=== PATIENT | male | born 1940 | race Caucasian/White ===

== ENCOUNTER 2017-03-03 18:35 | Emergency (ER) | payer MEDICARE, OTHER ==
--- NOTE | ~2017-03-03 | CR72 ---
[facility]. [facility] A Service of [facility] & [facility] RADIOLOGY TEXT RESULTS PATIENT: MAYO ARAYA LOCATION: SED : 41 UNIT #: [id number] AGE: [address]: Suki Dobson MD SEX: M ORDER DR: [id number] [place] [id number] E MR#: [id number] Acc #: [id number] NAME: MAYO ARAYA : 1940 SEX: M STUDY DATE/TIME: 03/03/2017 19:07 UNIT: SED ROOM: STUDY DESCRIPTION: CR Chest Single View Portable Attending Physician: Suki Dobson M.D. Ordering Physician: Suki Dobson M.D. Primary Care Physician: Ramon Mckeon M.D. MEDICAL IMAGING REPORT This report is preliminary unless electronic signature is present. EXAM Portable chest HISTORY Chest pain and pressure today. FINDINGS ETT tip is 2.5 cm above the olayinka. Probable infiltrate or atelectasis in the retrocardiac left lower lobe, evaluation which is partly limited by patient rotation to the left and underpenetration. There are also mild diffuse bilateral interstitial infiltrates and these are new findings compared to chest x-ray 04/28/2015. The interstitial prominence could be due to edema or pneumonitis. Stable vqal-ma-fkbdmiig right lower thoracic curve. Dictated by... Igor Huerta M.D. THIS IS AN ELECTRONICALLY VERIFIED REPORT Igor Huerta M.D. at 03/04/2017 11:18 PM DFL/delia TD: 03/04/2017 02:41 JOB #: [id number] MEDICAL IMAGING REPORT Page 1 of 1
--- NOTE | ~2017-03-03 | EKG ---
PATIENT: MAYO ARAYA UNIT #: [id number] Ventricular Rate: 96 BPM Atrial Rate: 96 BPM P-R Interval: 156 ms QRS Duration: 100 ms Q-T Interval: 352 ms QTC Calculation(Bezet): 444 ms P [place]: 38 degrees Calculated R [place]: 33 degrees Calculated T [place]: 53 degrees Diagnosis Line: Normal sinus rhythm Diagnosis Line: ST elevation consider inferolateral injury or Diagnosis Line: acute infarct Diagnosis Line: * ACUTE UT Diagnosis Line: Abnormal ECG Diagnosis Line: When compared with ECG of 13-JUL-2016 06:58, Diagnosis Line: ST elevation now present in Inferior leads Diagnosis Line: ST now depressed in Anterior leads Diagnosis Line: ST elevation now present in Lateral leads Diagnosis Line: T wave inversion now evident in Anterior leads Diagnosis Line: Nonspecific T wave abnormality no longer evident Diagnosis Line: in Lateral leads Diagnosis Line: Confirmed by JORY ALBERT MD ([id number]) on 03/08/2017 Diagnosis Line: 7:59:43 PM INTERPRETING MD: ROOSEVELT TURPIN
[~2017-03-03 18:35] MED LIST: ANEXSIA 7.5/3251 TA1 PO; MIRALAX17 G2 PO; OMEPRAZOLE40 M1 PO; SENNA-S TABLET1 EAC1 PO; [UNRECOGNIZED DRUG - OTHER]
[2017-03-03 18:37] LABS: BASOPHIL# 0.1 X10e3 (0-0.3); BASOPHIL% 1.2 % (0-2.5); DIFF IND NO; EOSINOPHIL# 0.6 X10e3 (0-0.7); EOSINOPHIL% 6.1 % (0.0-7.0); HEMATOCRIT 42.1 % (38.0-50.0); HEMOGLOBIN 14.6 gm/dL (13.0-16.0); LYMPHOCYTE% 43.4 % (17.0-45.0); MEAN CELL VOLUME 94.4 FL (83-96); MEAN CORPUSCULAR HEMOGLOBIN 32.7 PG (28-34); MEAN CORPUSCULAR HGB CONC 34.7 g/dL (30-36); MEAN PLATELET VOLUME 8.9 FL (6.5-11.5); MONOCYTE# 0.7 X10e3 (0-1.0); MONOCYTE% 7.5 % (3.0-12.0); NEUTROPHIL# 3.9 X10e3 (1.5-7.1); NEUTROPHIL% 41.8 % (40-75); PLATELET COUNT 185 X10e3 (140-420); RED BLOOD COUNT 4.46 X10e (3.90-5.60); RED CELL DISTRIBUTION WIDTH 13.7 % (11.0-15.5); WHITE BLOOD COUNT 9.2 X10e3 (4.0-10.5)
[2017-03-03 18:43] LABS: INR 1.1; PROTHROMBIN TIME (PATIENT) 12.8 SECONDS (9.5-12.4)
[2017-03-03 18:50] LABS: PARTIAL THROMBOPLASTIN TIME 26.1 SECONDS (25.6-38.1)
[2017-03-03 18:52] LABS: BILIRUBIN, DIRECT 0.1 mg/dL (0.0-0.2); BILIRUBIN,INDIRECT 0.6 mg/dL (0.0-0.9); BILIRUBIN,TOTAL 0.7 mg/dL (0.2-2.0); GLOM FILT RATE Estimated 72.8 mL/min (>60); POTASSIUM 3.7 mmol/L (3.5-5.1); PROTEIN TOTAL SERUM 7.1 g/dL (6.0-8.3)
[2017-03-03 20:20] LABS: POC - CKMB <1.0 ng/mL (0.0-7.9)
[2017-03-03 20:21] LABS: POC - TROPONIN <0.05 ng/mL (<=0.05)
[2017-03-12] MEDS ORDERED: BENZONATATE200 M1 PO (01:39)
[2017-03-12] MEDS ORDERED: ST JOSEPH ASPIR81 MG PO (01:40)
[2017-03-12] MEDS ORDERED: METOPROLOL TAR25 MG PO (01:40)
[2017-03-12] MEDS ORDERED: AZITHROMYCIN250 MG PO (01:41)
[2017-03-12] MEDS ORDERED: BRILINTA90 MG PO (01:41)
[2017-03-12] MEDS ORDERED: ZESTRIL2.5 M1 PO (01:42)
[2017-03-12] MEDS ORDERED: LIPITOR80 MG PO (01:43)
[2017-03-12] MEDS ORDERED: NITROSTAT0.4 MG SL (01:44)
[2017-03-23] MEDS ORDERED: ISOSORBIDE MONO30 M1 PO (15:40)
[2017-03-23] MEDS ORDERED: LASIX20 MG PO (15:41)
[2017-03-23] MEDS ORDERED: BACLOFEN10 MG PO (15:41)
[2017-03-23] MEDS ORDERED: LOPRESSOR PO (15:42)
[2017-03-23] MEDS ORDERED: ATORVASTATIN CA80 MG PO (15:43)
== END 2017-03-03 19:25 ==
LOC: SED 18:35
PROVIDERS: Emergency Medicine
DX: I21.3 ST elevation (STEMI) myocardial infarction of unspecified site (principal); K21.9 Gastro-esophageal reflux disease without esophagitis; Z88.2 Allergy status to sulfonamides
CPT/HCPCS: 36415; 71010; 80048; 80076; 82553; 83874; 83880; 84484; 85025; 85610; 85730; 93005; 99285; J0282; J0330; J1644; J2250; J2270

== ENCOUNTER 2017-03-12 01:44 | Emergency (ER) | payer MEDICARE, OTHER ==
--- NOTE | ~2017-03-12 | EKG ---
PATIENT: MAYO ARAYA UNIT #: [id number] Ventricular Rate: 92 BPM Atrial Rate: 92 BPM P-R Interval: 146 ms QRS Duration: 84 ms Q-T Interval: 358 ms QTC Calculation(Bezet): 442 ms P [place]: 56 degrees Calculated R [place]: 23 degrees Calculated T [place]: 110 degrees Diagnosis Line: Sinus rhythm with occasional Premature ventricular Diagnosis Line: complexes Diagnosis Line: T wave abnormality, consider lateral ischemia Diagnosis Line: Abnormal ECG Diagnosis Line: When compared with ECG of 03-MAR-2017 18:14, Diagnosis Line: Premature ventricular complexes are now Present Diagnosis Line: ST no longer elevated in Inferior leads Diagnosis Line: ST less depressed in Anterior leads Diagnosis Line: T wave inversion no longer evident in Anterior Diagnosis Line: leads Diagnosis Line: T wave inversion now evident in Lateral leads Diagnosis Line: Confirmed by JORY ALBERT MD ([id number]) on 03/23/2017 Diagnosis Line: 11:47:34 AM INTERPRETING MD: ROOSEVELT TURPIN
--- NOTE | ~2017-03-12 | CR72 ---
[facility]. [facility] A Service of [facility] & [facility] RADIOLOGY TEXT RESULTS PATIENT: MAYO ARAYA LOCATION: SED : 41 UNIT #: [id number] AGE: [address]: Carlie Valdes MD SEX: M ORDER DR: [id number] [place] [id number] E MR#: [id number] Acc #: [id number] NAME: MAYO ARAYA : 1940 SEX: M STUDY DATE/TIME: 03/12/2017 2:17 UNIT: SED ROOM: STUDY DESCRIPTION: CR Chest Single View Portable Attending Physician: Carlie Valdes M.D. Ordering Physician: Carlie Valdes M.D. Primary Care Physician: Ramon Mckeon M.D. MEDICAL IMAGING REPORT This report is preliminary unless electronic signature is present. EXAM Portable chest INDICATIONS Chest pain and cough for 1 week. COMPARISON 03/06/2017. FINDINGS A portable view of the chest was obtained. Heart size and vascularity are normal. The lungs are clear. The bones are unremarkable. IMPRESSION No active disease. Dictated by... Adam Jaime M.D. THIS IS AN ELECTRONICALLY VERIFIED REPORT Adam Jaime M.D. at 03/12/2017 9:54 PM FEL/psc TD: 03/12/2017 18:28 JOB #: [id number] MEDICAL IMAGING REPORT Page 1 of 1
[~2017-03-12 01:44] MED LIST changes: +AZITHROMYCIN250 MG PO; +BENZONATATE200 M1 PO; +BRILINTA90 MG PO; +LIPITOR80 MG PO; +METOPROLOL TAR25 MG PO; +NITROSTAT0.4 MG SL; +ST JOSEPH ASPIR81 MG PO; +ZESTRIL2.5 M1 PO
[2017-03-12 02:05] LABS: BASOPHIL% 0.3 % (0-2.5); EOSINOPHIL# 0.1 X10e3 (0-0.7); EOSINOPHIL% 0.9 % (0.0-7.0); HEMATOCRIT 34.4 % (38.0-50.0); HEMOGLOBIN 11.8 gm/dL (13.0-16.0); LYMPHOCYTE% 7.3 % (17.0-45.0); MEAN CELL VOLUME 93.9 FL (83-96); MEAN CORPUSCULAR HEMOGLOBIN 32.1 PG (28-34); MEAN CORPUSCULAR HGB CONC 34.2 g/dL (30-36); MEAN PLATELET VOLUME 8.3 FL (6.5-11.5); MONOCYTE# 1.3 X10e3 (0-1.0); MONOCYTE% 9.2 % (3.0-12.0); NEUTROPHIL# 11.2 X10e3 (1.5-7.1); NEUTROPHIL% 82.3 % (40-75); PLATELET COUNT 226 X10e3 (140-420); RED BLOOD COUNT 3.66 X10e (3.90-5.60); RED CELL DISTRIBUTION WIDTH 13.7 % (11.0-15.5); WHITE BLOOD COUNT 13.6 X10e3 (4.0-10.5)
[2017-03-12 02:08] LABS: DIFF IND NO
[2017-03-12 02:10] LABS: INR 1.4; PROTHROMBIN TIME (PATIENT) 15.8 SECONDS (9.5-12.4)
[2017-03-12 02:12] LABS: POC - CKMB <1.0 ng/mL (0.0-7.9); POC - TROPONIN 0.28 ng/mL (<=0.05)
[2017-03-12 02:18] LABS: PARTIAL THROMBOPLASTIN TIME 22.7 SECONDS (25.6-38.1)
[2017-03-12 02:20] LABS: ALBUMIN SERUM 3.1 g/dL (3.5-5.0); BILIRUBIN, DIRECT 0.3 mg/dL (0.0-0.2); BILIRUBIN,INDIRECT 0.9 mg/dL (0.0-0.9); BILIRUBIN,TOTAL 1.2 mg/dL (0.2-2.0); CALCIUM SERUM 8.5 mg/dL (8.4-10.2); GLOM FILT RATE Estimated 72.8 mL/min (>60); MAGNESIUM 1.9 mg/dL (1.6-3.0); POTASSIUM 3.9 mmol/L (3.5-5.1); PROTEIN TOTAL SERUM 6.7 g/dL (6.0-8.3)
[2017-03-12 03:50] LABS: POC - CKMB <1.0 ng/mL (0.0-7.9)
[2017-03-23] MEDS ORDERED: ISOSORBIDE MONO30 M1 PO (15:40)
[2017-03-23] MEDS ORDERED: BACLOFEN10 MG PO (15:41)
[2017-03-23] MEDS ORDERED: LASIX20 MG PO (15:41)
[2017-03-23] MEDS ORDERED: LOPRESSOR PO (15:42)
[2017-03-23] MEDS ORDERED: ATORVASTATIN CA80 MG PO (15:43)
== END 2017-03-12 07:12 ==
LOC: SED 01:44
PROVIDERS: Student in an Organized Health Care Education/Training Program
DX: R07.9 Chest pain, unspecified (principal); R05 Cough; I25.10 Atherosclerotic heart disease of native coronary artery without angina pectoris; Z88.2 Allergy status to sulfonamides; Z79.899 Other long term (current) drug therapy
CPT/HCPCS: 36415; 71010; 80048; 80076; 82553; 83735; 83880; 84484; 85025; 85610; 85730; 93005; 99284; 99285

== ENCOUNTER 2017-03-23 16:13 | Observation (INO) | payer MEDICARE, OTHER ==
--- NOTE | ~2017-03-23 | CO ---
Unit #: [id number] #: [id number] Patient: MAYO ARAYA [id number] [facility] [address] [facility]. [place], [place] [address] [id number] I MR#: [id number] NAME: MAYO ARAYA ROOM: 340 Age: 77 Sex: M Admission Date: 03/23/2017 : 1940 Attending Physician: Nato Rdz M.D. Primary Care Physician: Ramon Mckeon M.D. CONSULTATION REPORT JOB NOTE: CC: [facility] CARDIOLOGY. REASON FOR CONSULTATION Anticoagulation management. HISTORY OF PRESENT ILLNESS This is a 77-year-old white male, who presented to [facility] on 03/03/[address] elevation myocardial infarction. He had a ventricular fibrillation arrest that was terminated after defibrillation x1. He was started on amiodarone drip and subsequently transferred to [facility]. He underwent emergent cardiac catheterization when he was found to have 100% stenosis to ramus intermedius branch, where a drug-eluting stent was inserted. He has right coronary artery lesions up to 80% to 90% stenosis that was not dilated and planned for dilation at a later date. He has been maintained on aspirin and Brilinta. The patient is admitted with a complaint of constipation and weakness. Since he was discharged home, he has been noted to have weakness. He has not been eating well. He drinks up to four Ensures a day. He is taking little p.o. intake. He has been constipated where he would strain at home leading him to manually disimpact himself, because of hard stools. He saw bright red blood after this occurrence. He has also been taking his blood pressure at home, which he says was as low as 77 mmHg. His son who works in cardiac rehab also took his blood pressure, which he says was low also. He went to his primary care physician and was advised to go to the emergency room for evaluation. In the emergency room, he was hypotensive with blood pressure of 77/62 mmHg that was treated with 1 L of normal saline. His blood pressure improved to 129/63 mmHg. He denies any symptoms of angina, palpitations, dizziness, syncope, or near syncope. He reports no leg edema. He has had no recurrent episodes of hematochezia. His hemoglobin was stable on admission. He has been seen by Dr. Mack, whom wanted to do a colonoscopy. We have been asked to see the patient for advancement of anticoagulation. PAST MEDICAL HISTORY 1. Ventricular fibrillation arrest in 02/2017. 2. ST-elevation myocardial infarction, status post cardiac catheterization 03/03/[address] Sood at [facility] that reveals the following results. a. Left main normal. b. Left anterior descending artery with distal stenosis of 70%. c. Circumflex artery with diffuse irregularity. d. Right coronary artery with tandem lesions up to 80% to 90%. e. Ramus intermedius branch with 100% proximal stenosis. Unit #: [id number] #: [id number] Patient: MAYO ARAYA f. Ejection fraction of 45%. 3. Status post angioplasty with drug-eluting stent to the ramus intermedius branch on 03/03/2017. 4. On 2D echocardiogram on 01/04/2017 showed an ejection fraction equal to 45% to 50% with mild mitral regurgitation and ljqh-bp-lphyeinw tricuspid regurgitation. 5. Ischemic cardiomyopathy. 6. Hypertension. 7. Hyperlipidemia. 8. Former smoker. PAST SURGICAL HISTORY 1. Exploratory laparotomy for lysis of adhesions. 2. Appendectomy. SOCIAL HISTORY The patient is . He quit smoking years ago. He denies illicit drug or alcohol use. FAMILY HISTORY Father with myocardial infarction at age 80. REVIEW OF SYSTEMS CONSTITUTIONAL: Negative for fever or chills. Reports weakness and fatigue. Has an undocumented weight loss. HEENT: No headache, hearing or vision changes, or difficulty with swallowing. Denies dizziness. CARDIOVASCULAR: Has no symptoms of angina. Unaware of palpitations. No paroxysmal nocturnal dyspnea or orthopnea. Denies syncope or near syncope. RESPIRATORY: Has occasional dyspnea on exertion. No cough or hemoptysis. GASTROINTESTINAL: No abdominal pain, but positive for constipation. Reports hematochezia. No melena. EXTREMITIES: Negative for lower extremity edema. PHYSICAL EXAMINATION VITAL SIGNS: Blood pressure 119/73, heart rate 77, temperature 98.3. GENERAL: This is a pleasant 77-year-old well-developed, elderly white male, who is in no acute distress. NEUROLOGIC: He is awake, alert, and oriented. There were no focal weaknesses. NECK: Trachea is midline. No thyromegaly or lymphadenopathy. No jugular venous distention. HEART: S1 and S2. Heart sounds are normal. No murmurs, rubs, or clicks. Regular rate and rhythm. ABDOMEN: Soft and nontender with bowel sounds are present. EXTREMITIES: Without leg edema. SKIN: Warm and dry. DIAGNOSTIC STUDIES LABORATORY RESULTS: Hemoglobin 11.8, hematocrit 39.8, and platelet count 252. White count 7.8. Sodium 134, potassium 4.5, BUN 20, creatinine 0.9, glucose 90. Troponin less than 0.05 to 0.05. IMAGING STUDIES: Chest x-ray shows no active disease. CARDIOVASCULAR STUDIES: EKG; normal sinus rhythm, rate of 83 beats per minute with a T-wave inversions in the inferolateral leads. Unit #: [id number] #: [id number] Patient: MAYO ARAYA IMPRESSION 1. Constipation. 2. Hematochezia. 3. Stable angina. 4. Status post percutaneous coronary intervention and stent to the ramus intermedius on 03/03/2017. 5. Depression. 6. Hypertension. 7. Hyperlipidemia. PLAN 1. Cardiology was consulted for anticoagulation management. Given recent drug-eluting stent after ST-elevation myocardial infarction on 03/03/2017, the patient will need to continue on dual antiplatelet therapy with aspirin and Brilinta. 2. We will proceed with percutaneous coronary intervention on the right coronary selectively on 04/05/2017. 3. The patient can stop Brilinta 6 months after the percutaneous coronary intervention in 03/2017 for colonoscopy. 4. The patient is stable for discharge home today. Thank you for allowing us to assist in this patient's care. Dictated by... Pavan HoughRMimi. for Natalia Ramirez/rey TD: 03/25/2017 02:56 JOB #: [id number] CONSULTATION REPORT Page 1 of 1 X Sherwin Ellis APRN CONSULTATION REPORT
--- NOTE | ~2017-03-23 | CO ---
Unit #: [id number] #: [id number] Patient: MAYO DEMARCO [id number] [facility] [address] [facility]. [place], [place] [address] [id number] MR#: [id number] NAME: MAYO DEMARCO ROOM: 340 Age: 77 Sex: M Admission Date: 03/23/2017 : 1940 Attending Physician: Nato Rdz M.D. Primary Care Physician: Ramon Mckeon M.D. CONSULTATION REPORT HISTORY OF PRESENT ILLNESS Mr. Demarco is a 77-year-old gentleman who presented with bright red blood per rectum and some hypotension. The patient is two weeks status post angioplasty and stenting after a myocardial infarction. He was placed on Brilinta and aspirin. The patient states he became constipated and was straining at stool and had to manually disimpact himself to pass the stool ball. After that he noticed some blood per rectum. He came for evaluation because of that. Since arrival in the emergency room here at [facility] he has been hemodynamically stable. He did have a hemoccult positive stool, but no more bright red blood per rectum. He denies any abdominal or pelvic pain or any rectal pain. The patient had a colonoscopy in 05/2015 and it showed some sigmoid diverticula. The patient also had a previous exploratory laparotomy for small bowel obstruction and was noted also to have some jejunal diverticulosis. Again, since admission the patient denies any further blood per rectum. He is passing flatus and denies any abdominal or rectal pain. He has had no fever or chills. PAST MEDICAL HISTORY 1. Myocardial infarction, status post stenting two weeks ago. 2. Hypertension. 3. Hyperlipidemia. 4. Reflux. 5. Recent cardiac catheterization angioplasty. 6. Exploratory laparotomy with lysis of adhesions. 7. Appendectomy. 8. EGD and colonoscopy. SOCIAL HISTORY The patient lives at home. Retired. Denies the use of alcohol or tobacco. FAMILY HISTORY Lung cancer. ALLERGIES Sulfa. HOME MEDICATIONS 1. Aspirin. 2. Brilinta. 3. Zestril. 4. Nitroglycerin p.r.n. 5. Isosorbide. Unit #: [id number] #: [id number] Patient: MAYO DEMARCO 6. Lasix. 7. Baclofen. 8. Lopressor. 9. Atorvastatin. REVIEW OF SYSTEMS As above. No fever, chills, night sweats. No nausea or vomiting. No hematemesis or melena. No further bright red blood since admission. He is passing flatus. PHYSICAL EXAMINATION GENERAL: He is resting comfortably. Awake, alert and oriented. VITALS: Temperature 98.8, pulse 73, respiratory rate 18, blood pressure 99/52. HEENT: Unremarkable. LUNGS: Clear. HEART: Regular rhythm. ABDOMEN: Soft and nontender. RECTAL: No active hemorrhoidal disease and no fissure. EXTREMITIES: No edema. NEUROLOGIC: Grossly intact. SKIN: No skin rashes or lesions. DIAGNOSTIC STUDIES LABORATORY: Chemistries are unremarkable. In particular his troponin is normal at 0.04. BNP is slightly elevated at 270. Coags are pending. White blood cell count 11,400 with normal differential. Hemoglobin 11.3, platelets 314,000. Urinalysis was negative for blood. ASSESSMENT The patient is a 77-year-old gentleman on 2 antiplatelet agents after an angioplasty. He became constipated and with manual disimpaction he noted some bright red blood per rectum. He denies any abdominal or rectal pain. He has had no further blood per rectum. He has been hemodynamically stable and has not passed any further blood since admission. However, the patient does have a history of sigmoid diverticulosis and jejunal diverticulosis. He certainly could be at risk for lower GI bleeding, but I believe this most likely is trauma secondary to the constipation and disimpaction while on two antiplatelet agents. Currently he is asymptomatic and we will follow serial hemoglobin and hematocrit and observe for passage of any further blood. Given his recent myocardial infarction and angioplasty, we will ask cardiology when they would recommend the timing of a repeat elective colonoscopy to be performed. Dictated by... Natalia Delaney/sabine TD: 03/24/2017 10:38 JOB #: [id number] Unit #: [id number] #: [id number] Patient: MAYO DEMARCO CONSULTATION REPORT Page 1 of 1 X Jonh Mack MD CONSULTATION REPORT
--- NOTE | ~2017-03-23 | CO ---
Unit #: [id number] #: [id number] Patient: MAYO ARAYA [id number] [address] [address] [id number] I MR#: [id number] NAME: MAYO ARAYA ROOM: 340 Age: 77 Sex: M Admission Date: 03/23/2017 : 1940 Attending Physician: Nato Rdz M.D. Primary Care Physician: Ramon Mckeon M.D. CONSULTATION REPORT ADDENDUM ALLERGIES Sulfa. HOME MEDICATIONS Aspirin 81 mg daily, Brilinta 90 mg daily, Zestril 2.5 mg q.h.s., Nitrostat 0.4 mg sublingual p.r.n., isosorbide mononitrate 30 mg daily, furosemide 20 mg daily, baclofen 10 mg q.h.s., Lopressor 12.5 mg b.i.d., atorvastatin 80 mg q.h.s. Because of hypotension, furosemide and isosorbide mononitrate will be discontinued. The patient will continue on low-dose Zestril and beta-doug. Dictated by... Lin Hough/rey TD: 03/25/2017 00:10 JOB #: [id number] Clark Sood M.D. CONSULTATION REPORT Page 1 of 1 X Sherwin Ellis APRN X CONSULTATION REPORT
--- NOTE | ~2017-03-23 | EKG ---
PATIENT: MAYO ARAYA UNIT #: [id number] Ventricular Rate: 83 BPM Atrial Rate: 83 BPM P-R Interval: 162 ms QRS Duration: 88 ms Q-T Interval: 392 ms QTC Calculation(Bezet): 460 ms P [place]: 77 degrees Calculated R [place]: 30 degrees Calculated T [place]: 137 degrees Diagnosis Line: Normal sinus rhythm Diagnosis Line: T wave abnormality, consider lateral ischemia Diagnosis Line: Prolonged QT Diagnosis Line: Abnormal ECG Diagnosis Line: When compared with ECG of 12-MAR-2017 01:21, Diagnosis Line: Premature ventricular complexes are no longer Diagnosis Line: Present Diagnosis Line: Nonspecific T wave abnormality now evident in Diagnosis Line: Inferior leads Diagnosis Line: Confirmed by YARED MONROY MD ([id number]) on Diagnosis Line: 03/24/2017 11:08:22 PM INTERPRETING MD: CHAVA
--- NOTE | ~2017-03-23 | CR72 ---
[facility] A Service of [facility] & [facility] RADIOLOGY TEXT RESULTS PATIENT: MAYO ARAYA LOCATION: [facility] 340-01 : 41 UNIT #: [id number] AGE: [address]: Nato Rdz MD SEX: M ORDER DR: [id number] [facility] [address] [facility] [address] [facility]. [place], [place] [address] [id number] I MR#: [id number] #: [id number] NAME: MAYO ARAYA : 1940 SEX: M STUDY DATE/TIME: 03/23/2017 15:23 [facility] STUDY DESCRIPTION: CR Chest Single View Portable Attending Physician: Nato Rdz M.D. Ordering Physician: Delfin Cervantes M.D. Primary Care Physician: Ramon Mckeon M.D. MEDICAL IMAGING REPORT This report is preliminary unless electronic signature is present EXAM Portable chest. INDICATIONS Low blood pressure today, weakness, recent heart attack. COMPARISON Comparison with 03/12/2017. FINDINGS There is no acute-appearing infiltrate. The heart size is stable. Scoliosis. IMPRESSION No acute findings. Dictated by... Ben Oneil M.D. THIS IS AN ELECTRONICALLY VERIFIED REPORT Ben Oneil M.D. at 03/24/2017 9:32 AM BETSY/andrés TD: 03/23/2017 17:11 JOB #: [id number] MEDICAL IMAGING REPORT Page 1 of 1 COPY
--- NOTE | ~2017-03-23 | HP ---
Unit #: [id number] #: [id number] Patient: MAYO ARAYA [id number] [address] [address] [id number] E MR#: [id number] NAME: MAYO ARAYA ROOM: Age: 77 Sex: M Admission Date: 03/23/2017 : 1940 Attending Physician: Delfin Cervantes M.D. Primary Care Physician: Ramon Mckeon M.D. HISTORY AND PHYSICAL CHIEF COMPLAINT Weakness. HISTORY OF PRESENT ILLNESS The patient is a 77-year-old male with past medical history of coronary artery disease, hypertension, hyperlipidemia, GERD, who presented to the emergency department for evaluation of the above. The patient states that he had a myocardial infarction about two weeks ago at [facility]. He apparently underwent stent placement. He states that he has been feeling generally weak since that time. He has also had intermittent constipation. Today, he was constipated. He states that he was having to "strain a lot" with bowel movement. He attempted to manually disimpact himself. He then noticed some bleeding per rectum. He ultimately had a bowel movement that was mixed with some bright red blood. He subsequently went to [facility] and was noted to have blood pressure systolic in the 80s. He was sent to the emergency department for further evaluation. Upon arrival in the emergency department, the patient's pulse and blood pressure were 80 and 124/76 respectively. He was heme-positive. Hemoglobin is 12. He is being admitted to [facility] for evaluation and further treatment. PAST MEDICAL HISTORY 1. Admission to [facility] two weeks ago for myocardial infarction. He underwent stent placement (no records). 2. Coronary artery disease, status post stent placement. 3. Hypertension. 4. Hyperlipidemia. 5. GERD. PAST SURGICAL HISTORY 1. Cardiac catheterization. 2. Exploratory laparotomy with lysis of adhesions. 3. Appendectomy and enterotomy with removal of hard mobile mass in the ileum. 4. EGD and colonoscopy (06/12/2015) showed normal upper endoscopy and scant diverticula involving the sigmoid and descending colon. ALLERGIES Sulfa. HOME MEDICATIONS Unit #: [id number] #: [id number] Patient: MAYO ARAYA 1. Aspirin 81 mg daily. 2. Brilinta 90 mg daily. 3. Zestril 2.5 mg h.s. 4. Nitroglycerin 0.4 mg sublingual p.r.n. 5. Isosorbide 30 mg daily. 6. Lasix 20 mg daily. 7. Baclofen 10 mg daily. 8. Lopressor 12.5 mg b.i.d. 9. Atorvastatin 80 mg h.s. SOCIAL HISTORY The patient lives with his . No tobacco or alcohol use. FAMILY HISTORY Notable for lung cancer. REVIEW OF SYSTEMS A complete review of systems is negative except as indicated in the HPI. The patient states that he has lost weight over the past couple of weeks. PHYSICAL EXAMINATION VITAL SIGNS: Temperature 97.6, pulse 80, respirations 27, blood pressure 124/79. GENERAL: The patient is a very pleasant male who is awake and alert in no acute distress. HEENT: Head is atraumatic. Mucous membranes are moist. NECK: Supple. Trachea is midline. LUNGS: Clear to auscultation bilaterally with no increased work of breathing. HEART: Regular rate and rhythm. ABDOMEN: Soft, nontender. Bowel sounds present in all four quadrants. RECTAL: Heme-positive per ER documentation. EXTREMITIES: Nontender with no pedal edema. NEUROLOGIC: Patient is awake and alert. He follows commands. PSYCHIATRIC: Mood and affect are normal. Patient is cooperative. SKIN OF EXAMINED AREAS: Warm and dry. DIAGNOSTIC STUDIES LABORATORY: Complete blood count notable for hemoglobin 12, hematocrit 35.6, white blood cell count 11.4. Troponin less than 0.05. Comprehensive metabolic panel notable for sodium 132, chloride 98, glucose 134, albumin 3.3. Urinalysis is essentially negative. CARDIOVASCULAR: EKG shows normal sinus rhythm with a rate of 83 beats per minute. ASSESSMENT The patient is a 77-year-old male with: 1. Gastrointestinal bleed with hemoglobin of 12. The patient has seen Dr. Solis in the past. 2. Hypotension with blood pressure in the 80s systolic at outlying facility. 3. Coronary artery disease with recent stent placement. 4. Hyperlipidemia. 5. Gastroesophageal reflux disease. I am not holding aspirin nor Brilinta due to the patient's recent stent placement and hemoglobin of 12. Unit #: [id number] #: [id number] Patient: MAYO ARAYA PLAN 1. Admit to intermediate level for observation. 2. Clear liquid diet for possible endoscopy. 3. Hemoglobin and hematocrit q.[address] Solis regarding GI bleed. 5. Monitor blood pressure closely. 6. Normal saline at 75 mL per hour. 7. Serial cardiac enzymes. 8. Get records from [facility]. 9. Hold antihypertensive medications. 10. Repeat labs in the morning. 11. SCDs for DVT prophylaxis. 12. Additional workup and consultants based on above. Dictated by Natalia Lehman/viri TD: 03/23/2017 19:49 JOB #: [id number] HISTORY AND PHYSICAL Page 1 of 1 X Danay Cervantes MD X HISTORY AND PHYSICAL
--- NOTE | ~2017-03-23 | DS ---
Unit #: [id number] #: [id number] Patient: MAYO ARAYA [id number] [facility]. [place], [place] [address] [id number] MR#: [id number] NAME: MAYO ARAYA ROOM: 340 Age: 77 Sex: M Admission Date: 03/23/2017 : 1940 Discharge Date: 03/24/2017 Attending Physician: Nato Rdz M.D. Primary Care Physician: Ramon Mckeon M.D. DISCHARGE SUMMARY REASON FOR ADMISSION Weakness. HISTORY OF PRESENT ILLNESS/HOSPITAL COURSE Patient is a very pleasant 77-year-old male who, approximately 2-3 weeks ago, was admitted secondary to acute myocardial infarction. Otherwise healthy prior to that particular hospital stay. Was discharged on both Brilinta and aspirin, as well as routine cardiac medications. He states that he went home, he had strained a lot during a bowel movement, began feeling very weak, tired afterward. He also noted some blood in his bowel movement. Subsequently presented to the ER for further evaluation. He was admitted secondary to heme-positive stools. His initial hemoglobin was 12. [facility] saw and evaluated him this morning. They felt as though a colonoscopy could be warranted if the patient was able to go off of anticoagulation therapy from a cardiac standpoint. After review and discussion with the patient, this morning his laboratory studies show a hemoglobin of 11.8, and in review with Dr. Sood, at this point in time, the patient is not able to go off of antiplatelet therapy in consideration of his recent myocardial infarction and in consideration that his hemoglobin is stable. He is otherwise feeling well, and in consideration that it seems likely that he had a large bowel movement and/or possible internal hemorrhoids that caused the bleeding issue, this patient will be discharged home. He will follow up as an outpatient with his primary care physician in 7-10 days for repeat CBC. It should be noted at time discharge his hemoglobin is approximately 12. I have also added Colace at time of discharge. He states that, over the past 2-3 weeks, he has lost approximately 10-15 pounds. He just does not feel like himself. I feel as though this may be post OK depression; therefore, Lexapro 10 mg will be added at time of discharge. This, too, can be followed by his primary care physician as an outpatient. If he does have recurrent episodes of bright red blood per rectum or if his hemoglobin should decrease, both outpatient versus inpatient colonoscopy may be considered, and he is to follow with his primary care physician to further review ongoing plan of care. It was noted that he did have decreased blood pressure on admission, and his beta-doug therapy will be adjusted at time of discharge. His Unit #: [id number] #: [id number] Patient: MAYO ARAYA medication regimen is to be reviewed by cardiology prior to discharge. FINAL DISCHARGE DIAGNOSES 1. Bright red blood per rectum x1, now resolved. 2. Anemia. Baseline hemoglobin approximately 12. 3. Recent acute myocardial infarction, on antiplatelet therapy. 4. Coronary artery disease. 5. Hypertension. 6. Hyperlipidemia. 7. Prior history of gastroesophageal reflux disease. 8. Recent weight loss, likely depression related. DISCHARGE MEDICATIONS 1. Colace 100 mg p.o. b.i.d. 2. Lexapro 10 mg p.o. daily. 3. Aspirin 81 mg daily. 4. Brilinta 90 mg daily. 5. Lisinopril 2.5 mg p.o. q.h.s. 6. Imdur 30 mg daily. 7. Atorvastatin 80 mg p.o. q.h.s. 8. Lopressor previously was 12.5 mg p.o. b.i.d. Dose will be adjusted after review from Dr. Sood and cardiology service later this morning. DISCHARGE CONDITION Stable. DISCHARGE DISPOSITION Home. Dictated by... Natalia Gardiner/sg TD: 03/26/2017 20:27 JOB #: [id number] DISCHARGE SUMMARY Page 1 of 1 X Nato Rdz MD X DISCHARGE SUMMARY
[2017-03-23 15:29] LABS: BASOPHIL# 0.1 X10e3 (0-0.3); BASOPHIL% 0.6 % (0-2.5); EOSINOPHIL# 0.2 X10e3 (0-0.7); EOSINOPHIL% 1.6 % (0.0-7.0); HEMATOCRIT 35.6 % (38.0-50.0); LYMPHOCYTE# 1.2 X10e3 (1.0-3.5); LYMPHOCYTE% 10.9 % (17.0-45.0); MEAN CORPUSCULAR HGB CONC 33.7 g/dL (30-36); MEAN PLATELET VOLUME 7.6 FL (6.5-11.5); MONOCYTE# 0.9 X10e3 (0-1.0); MONOCYTE% 7.8 % (3.0-12.0); NEUTROPHIL# 9.1 X10e3 (1.5-7.1); NEUTROPHIL% 79.1 % (40-75); PLATELET COUNT 314 X10e3 (140-420); RED BLOOD COUNT 3.87 X10e (3.90-5.60); RED CELL DISTRIBUTION WIDTH 13.6 % (11.0-15.5); WHITE BLOOD COUNT 11.4 X10e3 (4.0-10.5)
[2017-03-23 15:30] LABS: DIFF IND NO
[2017-03-23 15:53] LABS: POC - CKMB 1.2 ng/mL (0.0-7.9); POC - TROPONIN <0.05 ng/mL (<=0.05)
[2017-03-23 16:10] LABS: ALBUMIN SERUM 3.3 g/dL (3.5-5.0); BILIRUBIN,TOTAL 0.8 mg/dL (0.2-2.0); BUN/CREATININE RATIO 25.45; CALCIUM SERUM 8.6 mg/dL (8.4-10.2); CREATININE SERUM 1.1 mg/dL (0.6-1.4); GLOM FILT RATE Estimated 64.9 mL/min (>60)
[~2017-03-23 16:13] MED LIST changes: +ATORVASTATIN CA80 MG PO; +BACLOFEN10 MG PO; +ISOSORBIDE MONO30 M1 PO; +LASIX20 MG PO; +LOPRESSOR PO
[2017-03-23 17:37] LABS: URINE SOURCE CLEAN CATCH
[2017-03-23 17:44] LABS: URINE APPEARANCE CLEAR; URINE BILIRUBIN NEG (NEG); URINE BLOOD NEG (NEG); URINE COLOR YELLOW; URINE GLUCOSE NEG (NEG); URINE KETONE 1+ (NEG); URINE LEUKOCYTE ESTERASE NEG (NEG); URINE NITRATE NEG (NEG); URINE PH 5.5 (5-8); URINE PROTEIN NEG (NEG); URINE SPECIFIC GRAVITY 1.025 (1.003-1.035)
[2017-03-23 17:54] LABS: CULTURE INDICATED? NO
[2017-03-24 02:33] LABS: HEMOGLOBIN 11.3 gm/dL (13.0-16.0)
[2017-03-24 02:46] LABS: CK TOTAL 29 IU/L (36-174)
[2017-03-24 07:12] LABS: HEMATOCRIT 34.8 % (38.0-50.0); HEMOGLOBIN 11.8 gm/dL (13.0-16.0); MEAN CELL VOLUME 92.9 FL (83-96); MEAN CORPUSCULAR HEMOGLOBIN 31.6 PG (28-34); MEAN PLATELET VOLUME 7.9 FL (6.5-11.5); RED BLOOD COUNT 3.74 X10e (3.90-5.60); RED CELL DISTRIBUTION WIDTH 13.5 % (11.0-15.5); WHITE BLOOD COUNT 7.8 X10e3 (4.0-10.5)
[2017-03-24 07:21] LABS: INR 1.1
[2017-03-24 07:57] LABS: CK TOTAL 34 IU/L (36-174)
[2017-03-24 08:01] LABS: ALBUMIN SERUM 2.9 g/dL (3.5-5.0); BUN/CREATININE RATIO 22.22; CALCIUM SERUM 8.4 mg/dL (8.4-10.2); CREATININE SERUM 0.9 mg/dL (0.6-1.4); GLOM FILT RATE Estimated 82.7 mL/min (>60); POTASSIUM 4.5 mmol/L (3.5-5.1); PROTEIN TOTAL SERUM 5.9 g/dL (6.0-8.3)
[2017-03-24 08:50] LABS: INR 1.1; PARTIAL THROMBOPLASTIN TIME 29.2 SECONDS (23.5-31.3)
[2017-03-24] MEDS ORDERED: LIPITOR80 MG PO (12:05)
[2017-03-24] MEDS ORDERED: LEXAPRO5 MG PO (12:06)
[2017-03-24] MEDS ORDERED: DOCUSATE SODIU100 MG PO (12:07)
== END 2017-03-24 12:55 | disposition home or self-care (01) ==
LOC: CED 16:13 → CEDOF 19:00 → C3A PCU 23:33
PROVIDERS: Emergency Medicine; Family Medicine
DX: K62.5 Hemorrhage of anus and rectum (principal); I25.118 Atherosclerotic heart disease of native coronary artery with other forms of angina pectoris; I21.3 ST elevation (STEMI) myocardial infarction of unspecified site; Z95.5 Presence of coronary angioplasty implant and graft; D64.9 Anemia, unspecified; K59.00 Constipation, unspecified; E78.5 Hyperlipidemia, unspecified; I10 Essential (primary) hypertension; K21.9 Gastro-esophageal reflux disease without esophagitis; F32.9 Major depressive disorder, single episode, unspecified; I08.1 Rheumatic disorders of both mitral and tricuspid valves; R63.4 Abnormal weight loss; Z79.02 Long term (current) use of antithrombotics/antiplatelets; Z79.82 Long term (current) use of aspirin; Z88.2 Allergy status to sulfonamides; Z87.891 Personal history of nicotine dependence; Z82.49 Family history of ischemic heart disease and other diseases of the circulatory system
CPT/HCPCS: 71010; 80053; 81003; 82550; 82553; 84484; 85014; 85018; 85025; 85027; 85610; 85730; 86850; 86900; 86901; 93005; 96374; 99291; G0378

== ENCOUNTER 2017-04-05 05:37 | Inpatient (IN) | payer MEDICARE, OTHER ==
--- NOTE | ~2017-04-05 | EKG ---
PATIENT: MAYO ARAYA UNIT #: [id number] Ventricular Rate: 89 BPM Atrial Rate: 89 BPM P-R Interval: 172 ms QRS Duration: 90 ms Q-T Interval: 356 ms QTC Calculation(Bezet): 433 ms P [place]: 70 degrees Calculated R [place]: 13 degrees Calculated T [place]: 109 degrees Diagnosis Line: Normal sinus rhythm Diagnosis Line: Nonspecific ST and T wave abnormality Diagnosis Line: Abnormal ECG Diagnosis Line: When compared with ECG of 05-APR-2017 06:43, Diagnosis Line: (unconfirmed) Diagnosis Line: No significant change was found Diagnosis Line: Confirmed by ALEJANDRO GEORGE MD ([id number]) on 04/06/2017 Diagnosis Line: 11:13:50 PM INTERPRETING MD: ARIEL TURPIN
--- NOTE | ~2017-04-05 | DS ---
Unit #: [id number] #: [id number] Patient: MAYO ARAYA [id number] [address] [id number] I MR#: [id number] NAME: MAYO ARAYA ROOM: 560 Age: 77 Sex: M Admission Date: 04/05/2017 : 1940 Discharge Date: 04/07/2017 Attending Physician: Clark Sood M.D. Primary Care Physician: Ramon Mckeon M.D. DISCHARGE SUMMARY DISCHARGE DIAGNOSES 1. Coronary artery disease with recent ST elevation myocardial infarction and ventricular fibrillation arrest February 2017. Status post left cardiac catheterization on 03/03/2017 revealed left main normal, distal left anterior descending 70%, left circumflex with diffuse irregularity, right coronary artery with tandem lesions up to 80% to 90%, ramus intermedius 100% proximal stenosis, ejection fraction 45%. Status post percutaneous coronary intervention and drug-eluting stent in the ramus intermedius on 03/03/2017. 2. Staged percutaneous coronary intervention and drug-eluting stent in the right coronary artery on 04/05/2017 with slow flow phenomenon and intraoperative myocardial infarction. 3. Hypotension requiring vasopressors, resolved. 4. Mild ischemic cardiomyopathy with a left ventricular ejection fraction of 45%. 5. Hypertension. 6. Hyperlipidemia. 7. Depression. 8. Recent constipation with hematochezia, resolved. 9. Reformed tobacco abuse. DISCHARGE MEDICATIONS 1. Lexapro 20 mg p.o. daily. 2. Atorvastatin 80 mg p.o. at bedtime. 3. Metoprolol tartrate 12.5 mg p.o. daily. 4. Colace 100 mg p.o. b.i.d. 5. Lisinopril 2.5 mg p.o. q.h.s. 6. Aspirin 81 mg p.o. daily. 7. Plavix 75 mg p.o. daily. 8. Nitroglycerin 0.4 mg sublingual as needed for chest pain. HOSPITAL COURSE This is a 77-year-old white male, known to Dr. Sood, with a past medical history of coronary artery disease with recent ventricular fibrillation arrest, NSTEMI. The patient underwent a cardiac catheterization March 03, 2017 and had a drug-eluting stent successfully deployed in the ramus. The right coronary artery was 80% to 90%. LAD had distal stenosis of possibly 70%. Ejection fraction was 45%. He was scheduled for staged angioplasty of the right coronary artery on 04/05/2017. He was taken for the cardiac catheterization by Dr. Sood. The right coronary artery was reduced to 0% with a 4 x 20 mm Synergy drug-eluting stent. The patient had some chest pain and hypotension. He briefly required the use of Gilberto-Synephrine, which was discontinued. Labs were Unit #: [id number] #: [id number] Patient: MAYO ARAYA obtained, and postop troponin was elevated at 1.87 but improved to 1.2. MB percentage was also elevated at 16.5, 17.9 and 7.9. This was thought to be due to intraoperative [place] due to slow flow phenomenon of the right coronary artery. He was kept for 2 nights for observation. Telemetry revealed no sustained arrhythmias. His blood pressure improved, and he was started back on low dose beta-doug and ALF inhibitor. Due to inability to afford Brilinta, he was changed to Plavix. He ambulated and has had no further episodes of chest pain. Postoperative EKG reveals no acute findings. Again, his cardiac enzymes are trending down. He is on room air and has ambulated without complaints. He is stable and will be discharged home today. He has been instructed to take his aspirin and Plavix for a minimum of 12 months, and he verbalizes understanding. He is on a statin, ALF inhibitor, beta-doug and nitroglycerin as needed. Followup appointment has been arranged on June 05 at 2:45 p.m. DIAGNOSTIC STUDIES LABORATORY: White blood cell count 8.1, hemoglobin 12.8, hematocrit 38.2, platelets 187. Sodium 135, potassium 4.6, chloride 103, CO2 27, BUN 20, creatinine 0.9, glucose 103. Peak troponin 1.87 then 1.20. Percentage MB 16.5, 17.9 and 7.9. Angio CK 69, 108 and 57. Total cholesterol 73, triglycerides 41, LDL 34, HDL 31. INR 1.1. IMAGING: Chest x-ray reveals no acute findings. CARDIOVASCULAR: Electrocardiogram reveals normal sinus rhythm. Some T wave inversion in the inferior leads. T wave inversion less evident in the lateral leads. DISCHARGE INSTRUCTIONS 1. The patient will be discharged home today. 2. Follow up with primary care provider in 1-2 weeks. 3. Follow up with Dr. Sood on June 05 at 2:45 p.m. 4. Post cath instructions. 5. Dual antiplatelet therapy for a minimum of 12 months. 6. Cardiac rehab recommended. Dictated by... Valorie Crespo APRN for Natalia Ramirez/sg TD: 04/14/2017 10:38 JOB #: [id number] Unit #: [id number] #: [id number] Patient: MAYO ARAYA DISCHARGE SUMMARY Page 1 of 1 X X DISCHARGE SUMMARY
--- NOTE | ~2017-04-05 | EKG ---
PATIENT: MAYO ARAYA UNIT #: [id number] Ventricular Rate: 83 BPM Atrial Rate: 83 BPM P-R Interval: 130 ms QRS Duration: 82 ms Q-T Interval: 370 ms QTC Calculation(Bezet): 434 ms P [place]: 58 degrees Calculated R [place]: -8 degrees Calculated T [place]: 115 degrees Diagnosis Line: Normal sinus rhythm Diagnosis Line: T wave abnormality, consider lateral ischemia Diagnosis Line: Abnormal ECG Diagnosis Line: When compared with ECG of 05-APR-2017 10:42, Diagnosis Line: (unconfirmed) Diagnosis Line: No significant change was found Diagnosis Line: Confirmed by ALEJANDRO GEORGE MD ([id number]) on 04/06/2017 Diagnosis Line: 11:15:40 PM INTERPRETING MD: ARIEL TURPIN
--- NOTE | ~2017-04-05 | EKG ---
PATIENT: MAYO ARAYA UNIT #: [id number] Ventricular Rate: 92 BPM Atrial Rate: 92 BPM P-R Interval: 152 ms QRS Duration: 86 ms Q-T Interval: 354 ms QTC Calculation(Bezet): 437 ms P [place]: 73 degrees Calculated R [place]: 33 degrees Calculated T [place]: 107 degrees Diagnosis Line: Normal sinus rhythm Diagnosis Line: Nonspecific T wave abnormality Diagnosis Line: Abnormal ECG Diagnosis Line: When compared with ECG of 23-MAR-2017 15:00, Diagnosis Line: Nonspecific T wave abnormality no longer evident Diagnosis Line: in Inferior leads Diagnosis Line: Confirmed by ALEJANDRO GEORGE MD ([id number]) on 04/06/2017 Diagnosis Line: 11:11:18 PM INTERPRETING MD: ARIEL TURPIN
--- NOTE | ~2017-04-05 | EKG ---
PATIENT: MAYO ARAYA UNIT #: [id number] Ventricular Rate: 80 BPM Atrial Rate: 80 BPM P-R Interval: 150 ms QRS Duration: 84 ms Q-T Interval: 388 ms QTC Calculation(Bezet): 447 ms P [place]: 2 degrees Calculated R [place]: 3 degrees Calculated T [place]: -122 degrees Diagnosis Line: Normal sinus rhythm Diagnosis Line: Consider prior inferior infarct by series Diagnosis Line: Nonspecific T wave abnormality Diagnosis Line: Abnormal ECG Diagnosis Line: When compared with ECG of 06-APR-2017 08:20, Diagnosis Line: T wave inversion now evident in Inferior leads Diagnosis Line: T wave inversion less evident in Lateral leads Diagnosis Line: Confirmed by YARED MONROY MD ([id number]) on Diagnosis Line: 04/07/2017 9:56:24 PM INTERPRETING MD: CHAVA
[~2017-04-05 05:37] MED LIST changes: +DOCUSATE SODIU100 MG PO; +LEXAPRO5 MG PO
[2017-04-05 06:20] LABS: HEMATOCRIT 38.2 % (38.0-50.0); HEMOGLOBIN 12.8 gm/dL (13.0-16.0); MEAN CELL VOLUME 94.1 FL (83-96); MEAN CORPUSCULAR HEMOGLOBIN 31.5 PG (28-34); MEAN CORPUSCULAR HGB CONC 33.5 g/dL (30-36); MEAN PLATELET VOLUME 8.3 FL (6.5-11.5); RED BLOOD COUNT 4.06 X10e (3.90-5.60); RED CELL DISTRIBUTION WIDTH 14.7 % (11.0-15.5); WHITE BLOOD COUNT 8.1 X10e3 (4.0-10.5)
[2017-04-05 06:32] LABS: INR 1.1; PARTIAL THROMBOPLASTIN TIME 28.2 SECONDS (23.5-31.3); PROTHROMBIN TIME (PATIENT) 11.5 SECONDS (9.6-11.5)
[2017-04-05 07:05] LABS: CALCIUM SERUM 8.9 mg/dL (8.4-10.2); GLOM FILT RATE Estimated 72.8 mL/min (>60); POTASSIUM 4.1 mmol/L (3.5-5.1)
[2017-04-05 18:28] LABS: ANGIO %MB 16.5 % (0.0-4.0); ANGIO MB 11.4 ng/ml
[2017-04-06 00:24] LABS: ANGIO %MB 17.9 % (0.0-4.0); ANGIO MB 19.3 ng/ml
[2017-04-06 06:26] LABS: BUN/CREATININE RATIO 22.22; CALCIUM SERUM 8.6 mg/dL (8.4-10.2); CREATININE SERUM 0.9 mg/dL (0.6-1.4); GLOM FILT RATE Estimated 82.7 mL/min (>60); POTASSIUM 4.6 mmol/L (3.5-5.1)
[2017-04-06 12:03] LABS: MB 20.3 ng/ml
[2017-04-07 13:34] LABS: ANGIO %MB 7.9 % (0.0-4.0); ANGIO MB 4.5 ng/ml
[2017-04-07] MEDS ORDERED: LEXAPRO20 MG PO (13:36)
[2017-04-07] MEDS ORDERED: CLOPIDOGREL75 MG PO (13:42)
== END 2017-04-07 15:45 | disposition home or self-care (01) | DRG 247 ==
LOC: CCVL 05:37 → CPACUOF 06:35 → CCVL 06:35 → CPACUOF 10:15 → CICCU3 10:15 → C5B 04-06 13:44 → CICCU3 04-06 13:44 → C5B 04-07 15:45
PROVIDERS: Internal Medicine Cardiovascular Disease; Nurse Practitioner Family
PROC: 027034Z Dilation of Coronary Artery, One Artery with Drug-eluting Intraluminal Device, Percutaneous Approach (ICD-10-PCS; principal; 2017-04-05)
PROC: 02703DZ Dilation of Coronary Artery, One Artery with Intraluminal Device, Percutaneous Approach (ICD-10-PCS; 2017-04-05)
DX: I25.110 Atherosclerotic heart disease of native coronary artery with unstable angina pectoris (principal); I95.9 Hypotension, unspecified; I25.2 Old myocardial infarction; F32.9 Major depressive disorder, single episode, unspecified; I10 Essential (primary) hypertension; I25.5 Ischemic cardiomyopathy; Z88.2 Allergy status to sulfonamides
CPT/HCPCS: 36415; 80048; 80061; 82550; 82553; 84484; 85027; 85347; 85610; 85730; 93005; C1725; C1769; C1874; C1894; J0153; J0461; J1644; J2250; J2270; J2370; J2405; J3010